=== PATIENT | male | born 1935 | race Caucasian/White ===

== ENCOUNTER 2017-07-31 14:32 | Inpatient (IN) | payer MEDICARE, OTHER ==
[~2017-07-31] VITALS: Ht 180.3 cm; Wt 89.8 kg
[2017-07-31 13:36] VITALS: BP 174/94
--- NOTE | 2017-07-31 14:40 | NUR ---
BIBRA 89 FROM [facility] [facility] C/O LOW BP 84/54 AT SCENE, OL=[id number] ON ROUTE. A/OX 4. BREATHING EVEN AND UNLABORED. NO SOB. VITAL STABLE. SAFTEY AND COMFORT MEASURES IN PLACE. AWAITING MD ORDERS.
--- NOTE | 2017-07-31 14:50 | NUR ---
REGULATORY AFFAIRS DIRECTOR AT BEDSIDE FOR BLOOD DRAW.
[2017-07-31 14:56] LABS: BASOPHILS # (AUTO) 0.2 /CMM (0.0-0.2); BASOPHILS % (AUTO) 3.5 % (0.0-2.0); EOSINOPHILS # (AUTO) 0.1 /CMM (0.0-0.7); EOSINOPHILS % (AUTO) 1.2 % (0.0-6.0); HEMATOCRIT 39 % (39-51); HEMOGLOBIN 12.7 g/dL (13.5-17.5); LYMPHOCYTES # (AUTO) 1.9 /CMM (0.8-4.8); MEAN CORPUSCULAR HEMOGLOBIN 29 PG (26.0-33.0); MEAN CORPUSCULAR HGB CONC 32 g/dl (31.0-36.0); MEAN CORPUSCULAR VOLUME 88 fL (80-96); MONOCYTES # (AUTO) 0.4 /CMM (0.1-1.30); NEUTROPHILS # (AUTO) 4.3 /CMM (1.8-8.9); NEUTROPHILS % (AUTO) 61.3 % (43.0-81.0); PLATELET COUNT (AUTO) 195 /CMM (150-450); RDW COEFFICIENT OF VARIATION 12.5 (11.5-15.0); RED BLOOD CELL COUNT(AUTO) 4.45 MIL/uL (4.5-6.0); WHITE BLOOD COUNT (AUTO) 6.9 K/uL (4.3-11.0)
[2017-07-31] MEDS ORDERED: IV NS 0.9% 500 ML BAG IV ONE (15:00)
--- NOTE | 2017-07-31 15:05 | NUR ---
PATIENT TAKEN TO CT VIA STRETCHER.
[2017-07-31 15:08] LABS: INR 0.87 (0.87-1.13)
[2017-07-31 15:10] LABS: ALANINE AMINOTRANSFERASE 23 U/L (12-78); ALBUMIN 3.7 g/dL (3.4-5.0); ALKALINE PHOSPHATASE 80 U/L (46-116); ASPARTATE AMINOTRANSFERASE 24 U/L (15-37); BILIRUBIN,DIRECT 0.1 mg/dL (0.0-0.2); BILIRUBIN,TOTAL 0.6 mg/dL (0.2-1.0); CALCIUM, SERUM 8.9 mg/dL (8.5-10.1); CARBON DIOXIDE 30 mmol/L (21-32); CHLORIDE 102 mmol/L (98-107); CREATININE 1.5 mg/dL (0.6-1.3); GLUCOSE 88 mg/dL (74-106); POTASSIUM 4.9 mmol/L (3.5-5.1); SODIUM SERUM 135 mmol/L (136-145); TOTAL PROTEIN, SERUM 7.4 g/dL (6.4-8.2); UREA NITROGEN, BLOOD 24 mg/dL (7-18)
[2017-07-31 15:12] LABS: TROPONIN I < 0.017 ng/mL (0.00-0.056)
--- NOTE | 2017-07-31 15:18 | NUR ---
PATIENT RETURNED FROM CT IN STABLE CONDITION.
[2017-07-31] MEDS ORDERED: PRAM1TAB3 PO (16:01)
[2017-07-31] MEDS ORDERED: CARB-93 PO (16:01)
[2017-07-31] MEDS ORDERED: ALPR0.5T PO (16:01)
[2017-07-31] MEDS ORDERED: ATEN50TA PO (16:01)
[2017-07-31] MEDS ORDERED: ESCI20TA PO (16:01)
--- NOTE | 2017-07-31 16:07 | NUR ---
REPORT GIVEN TO WARD CHADWICK FOR ADMISSION TO FLOOR.
[2017-07-31] MEDS ORDERED: BENAZEPRIL HCL 10 MG TABLET ONE (16:12)
--- NOTE | 2017-07-31 16:20 | NUR ---
URINE OBTAINED AND SENT TO LAB.
--- NOTE | 2017-07-31 16:21 | NUR ---
BLOOD PRESSURE INCREASED TO 167/105, INFORMED, ORDERED LOTENSIN 20MG.
[2017-07-31 16:30] VITALS: BP 171/97
[2017-07-31] MEDS ORDERED: MAG HYDROX/AL HYDROX/SIMETH 30 ML UDC PO PRN (16:30)
[2017-07-31] MEDS ORDERED: ACETAMINOPHEN 325 MG TABLET PO PRN (16:30)
[2017-07-31] MEDS ORDERED: ONDANSETRON HCL/PF 4 MG/2 ML VIAL IVP PRN (16:30)
[2017-07-31] MEDS ORDERED: ZOLPIDEM TARTRATE 5 MG TABLET PO PRN (16:30)
[2017-07-31] MEDS ORDERED: HYDROCODONE/APAP 5/325MG 1 EACH TABLET PO PRN (16:30)
[2017-07-31] MEDS ORDERED: Z GUARD REMEDY 2 OZ OINT TP PRN (16:30)
[2017-07-31] MEDS ORDERED: MAGNESIUM HYDROXIDE 30 ML UDC PO PRN (16:30)
[2017-07-31] MEDS ORDERED: BENAZEPRIL HCL 10 MG TABLET PO SCH (16:30)
--- NOTE | 2017-07-31 16:30 | NUR ---
RN FIELD CASE MANAGER OPENING RECEIVED PATIENT A/OX4 FAMILY AT BEDSIDE. PATIENT DENIES SOB, DIFFICULTY BREATHING OR PAIN AT THIS TIME. BP ELEVATED DUE TO NS BOLUS IN ER. PATIENT DENIES DIZZINESS. PATIENT TELE APPLIED. IV INTACT PATENT AND DRESSING CLEAN AND DRY. PATIENT APPEARS STABLE AT THIS TIME. MED RECON UPDATED PER FAMILY. WILL NOTIFY MD BERRY. WILL ROUND Q2H OR LESS PER NEEDS
[2017-07-31 16:32] VITALS: BP 169/94
--- NOTE | 2017-07-31 16:36 | NUR ---
PATIENT TRANSPORTED TO [facility] VIA ACLS PROTOCOL. RNWARD TO PROVIDE LUCIA.
[2017-07-31] MEDS: PRAMIPEXOLE DI-HCL 0.25 MG TABLET PO SCH (16:41)
[2017-07-31] MEDS: CARBIDOPA/LEVODOPA 25/100 MG 1 UDTAB PO SCH (16:41)
[2017-07-31] MEDS: IV NS 0.9% 1,000 ML IV PRN (16:41)
[2017-07-31] MEDS: ENOXAPARIN SODIUM 30 MG/0.3 ML DISP.SYRIN SQ SCH (16:53)
[2017-07-31] MEDS ORDERED: CHOL20004 PO (16:55)
[2017-07-31] MEDS ORDERED: MIRT30TA PO (16:55)
[2017-07-31] MEDS ORDERED: ROSU10TA PO (16:55)
--- NOTE | 2017-07-31 17:30 | NUR ---
SEALANT MIXER NOTES DR BERRY AT BEDSIDE. AWARE OF HTN AND NEW MEDS TO MED RECON
--- NOTE | 2017-07-31 18:00 | NUR ---
ROTARY DRILLER NOTES ADMISSION CHARTED AT "1800" HOWEVER COMPLETED WHEN PATIENT ADMITTED AT 1640.
--- NOTE | 2017-07-31 18:36 | NUR ---
HARDENING MACHINE OPERATOR HELPER CLOSING PATIENT STABLE. MD BERRY MESSAGED AGAIN FOR BP MANAGEMENT AND UPDATE IN MED RECON. ALL DUE MEDS GIVEN AND ALL NEEDS MET. NEEDS IN REACH. FAMILY AT SIDE. CARE ENDORSED TO RN FOR LUCIA
[2017-07-31] MEDS: ATENOLOL 50 MG TABLET PO SCH (19:00)
[2017-07-31] MEDS ORDERED: CLONIDINE HCL 0.1 MG TABLET PO PRN (19:00)
--- NOTE | 2017-07-31 19:45 | NUR ---
RN INITIAL NOTE RECEIVED PT IN NO ACUTE DISTRESS IN BED. PT IS A/O X 4 AND ABLE TO MAKE NEEDS KNOWN. PT IS ON RA AND TOLERATING WELL WITH O2 SAT @ 94%. PT IS ON TELE WITH SB IN THE 50'S ON THE MONITOR. PT IS NOT C/O ANY SOB, DIFFICULTY BREATHING OR PAIN AT THIS TIME. PT HAS LAC 18G THAT IS CLEAN DRY INTACT AND PATENT WITH NS @ 75ML/HR. BED IN LOW LOCK POSITION WITH RIALS UP X 2. CALL LIGHT WITHIN REACH AND ALL SAFETY MEASURES ENSURED AND CARRIED OUT. WILL CONTINUE TO MONITOR PT.
[2017-07-31 20:00] VITALS: BP 95/58
[2017-07-31] MEDS: MIRTAZAPINE 15 MG TABLET PO SCH (22:00)
[2017-07-31] MEDS: ALPRAZOLAM 0.5 MG TABLET PO PRN (22:45)
[2017-07-31] MEDS: ATORVASTATIN 10 MG TABLET PO SCH (22:46)
[2017-08-01] VITALS (8 sets, daily range): BP systolic 109–146; BP diastolic 56–84
--- NOTE | 2017-08-01 06:57 | NUR ---
RN CLOSING NOTE PT REMAINS IN NO ACUTE DISTRESS IN BED. PT DID NOT HAVE ANY SIGNIFICANT CHANGE IN CONDITION DURING SHIFT. ALL NEEDS MET, ALL ORDERS CARRIED OUT. WILL ENDORSE CARE TO AM RN FOR CONTINUITY OF CARE.
--- NOTE | 2017-08-01 07:23 | NUR ---
BOILER HOUSE OPERATOR OPENING RECEIVED PATIENT A/OX4. PATIENT DENIES SOB, DIFFICULTY BREATHING OR PAIN AT THIS TIME. PATIENT DENIES DIZZINESS. IV INTACT PATENT AND DRESSING CLEAN AND DRY; IVF RUNNING ORDERED. PATIENT APPEARS STABLE AT THIS TIME. WILL ROUND Q2H OR LESS PER NEEDS. BED LOWERED AND LOCKED, RAILS UPX3 FOR SAFETY AND BED ALARM ON
[2017-08-01 07:45] LABS: BASOPHILS % (AUTO) 0.2 % (0.0-2.0); EOSINOPHILS # (AUTO) 0.1 /CMM (0.0-0.7); EOSINOPHILS % (AUTO) 1.7 % (0.0-6.0); HEMATOCRIT 35 % (39-51); HEMOGLOBIN 11.7 g/dL (13.5-17.5); LYMPHOCYTES # (AUTO) 2.3 /CMM (0.8-4.8); LYMPHOCYTES % (AUTO) 28.8 % (20.0-44.0); MEAN CORPUSCULAR HEMOGLOBIN 30 PG (26.0-33.0); MEAN CORPUSCULAR HGB CONC 34 g/dl (31.0-36.0); MEAN CORPUSCULAR VOLUME 89 fL (80-96); MONOCYTES # (AUTO) 0.4 /CMM (0.1-1.30); MONOCYTES % (AUTO) 4.7 % (2.0-12.0); NEUTROPHILS # (AUTO) 5.1 /CMM (1.8-8.9); NEUTROPHILS % (AUTO) 64.6 % (43.0-81.0); PLATELET COUNT (AUTO) 153 /CMM (150-450); RDW COEFFICIENT OF VARIATION 13.2 (11.5-15.0); RED BLOOD CELL COUNT(AUTO) 3.94 MIL/uL (4.5-6.0); WHITE BLOOD COUNT (AUTO) 7.8 K/uL (4.3-11.0)
[2017-08-01 07:58] LABS: CALCIUM, SERUM 8.2 mg/dL (8.5-10.1); CARBON DIOXIDE 28 mmol/L (21-32); CHLORIDE 102 mmol/L (98-107); CREATININE 1.4 mg/dL (0.6-1.3); GLUCOSE 91 mg/dL (74-106); PHOSPHORUS 3.2 mg/dL (2.5-4.9); POTASSIUM 4.4 mmol/L (3.5-5.1); SODIUM SERUM 137 mmol/L (136-145); UREA NITROGEN, BLOOD 21 mg/dL (7-18)
[2017-08-01] MEDS: ESCITALOPRAM OXALATE (10 MG) 10 MG TABLET PO SCH (08:31)
[2017-08-01] MEDS: CHOLECALCIFEROL 1,000 UNIT TABLET (VIT D3) PO SCH (08:31)
[2017-08-01] MEDS: CARBIDOPA/LEVODOPA 25/100 MG 1 UDTAB PO SCH ×3 (08:31→17:41)
[2017-08-01] MEDS: PRAMIPEXOLE DI-HCL 0.25 MG TABLET PO SCH ×2 (08:31→17:41)
--- NOTE | 2017-08-01 08:35 | NUR ---
teletray operator notes patient bradycardic 60 holding atenolol at this time., will reevaluate
[2017-08-01] MEDS: ATENOLOL 50 MG TABLET PO SCH (09:00)
--- NOTE | 2017-08-01 12:15 | NUR ---
INSPECTOR ELECTROMECHANICAL NOTES PATIENT AWARE NEEDING ANOTHER URINE SAMPLE
--- NOTE | 2017-08-01 12:45 | NUR ---
GEOTHERMAL SHEET METAL WORKER NOTES DR MAT FLORIAN AND DR GOLDBERG AT BEDSIDE
[2017-08-01 13:34] LABS: APPEARANCE,URINE CLEAR (CLEAR); BILIRUBIN,URINE NEGATIVE (NEGATIVE); BLOOD, URINE NEGATIVE Ery/uL (NEGATIVE); COLOR,URINE YELLOW (YELLOW); KETONES,URINE NEGATIVE (NEGATIVE); LEUKOCYTE ESTERASE ,URINE NEGATIVE (NEGATIVE); NITRITE, URINE NEGATIVE (NEGATIVE); PROTEIN,URINE NEGATIVE (NEGATIVE); UGLUCOSE NEGATIVE (NEGATIVE); UROBILINOGEN,URINE 0.2 EU/dL (0.2)
[2017-08-01 13:39] LABS: TROPONIN I < 0.017 ng/mL (0.00-0.056)
[2017-08-01 13:46] LABS: IRON, SERUM 83 ug/dl (50-175); TOTAL IRON BINDING CAPACITY 262 ug/dl (250-450)
[2017-08-01 13:50] LABS: CHOLESTEROL 192 mg/dL (<200); FERRITIN 111 ng/mL (8-388); HDL CHOLESTEROL 43 mg/dL (40-60); LDL 114 mg/dL (0-99); THYROID STIMULATING HORMONE 0.688 uIU/mL (0.358-3.74); TRIGLYCERIDES 213 mg/dL (30-150)
--- NOTE | 2017-08-01 14:16 | NUR ---
DEPARTMENT CLINICIAN NOTES PATIENT STATES MUSCLE PAIN IN NECK AND SHOULDERS. OFFERED TYLENOL, ICE, HEAT, MASSAGE, PATIENT STATES NO. HE WILL HAVE COME AND GIVE MASSAGE.
[2017-08-01] MEDS: IV NS 0.9% 1,000 ML IV PRN (17:47)
--- NOTE | 2017-08-01 18:54 | NUR ---
POWER TRUCK DRIVER CLOSING PATIENT STABLE. PATIENT STATES SHOULDER PAIN HOWEVER IS NOT WANTING ANYTHING FOR PAIN. STATES HE WILL ASK FOR XANAX TONIGHT. AT BEDSIDE. MESSAGE TO SURGICAL SERVICES DIRECTOR TO FOLLOW UP ON ECHO. PATIENT TELE SINUS TANI 59. ALL DUE MEDS GIVEN AND ALL NEEDS MET. CARE ENDORSED TO RN FOR LUCIA
--- NOTE | 2017-08-01 20:00 | NUR ---
RETAIL SALES VITAMIN CONSULTANT - NOTES - RECEIVED PATIENT A/OX4. PATIENT DENIES SOB, DIFFICULTY BREATHING OR PAIN AT THIS TIME. PATIENT DENIES DIZZINESS. IV INTACT PATENT AND DRESSING CLEAN AND DRY; IVF RUNNING ORDERED. PATIENT APPEARS STABLE AT THIS TIME. WILL ROUND Q2H OR LESS PER NEEDS. BED LOWERED AND LOCKED, RAILS UPX3 FOR SAFETY AND BED ALARM ON
[2017-08-01] MEDS: ALPRAZOLAM 0.5 MG TABLET PO PRN (21:05)
[2017-08-01] MEDS: ATORVASTATIN 10 MG TABLET PO SCH (21:05)
[2017-08-01] MEDS: MIRTAZAPINE 15 MG TABLET PO SCH (21:06)
[2017-08-01] MEDS: ENOXAPARIN SODIUM 30 MG/0.3 ML DISP.SYRIN SQ SCH (21:08)
[2017-08-02] VITALS: BP 129/70
[2017-08-02 04:00] VITALS: BP 118/82
[2017-08-02] MEDS: IV NS 0.9% 1,000 ML IV PRN (04:59)
--- NOTE | 2017-08-02 07:30 | NUR ---
RESEARCH CONSULTANT OPENING RECEIVED PATIENT A/OX4. PATIENT DENIES SOB, DIFFICULTY BREATHING OR PAIN AT THIS TIME. PATIENT DENIES DIZZINESS WHILE IN BED BUT STATES WHEN HE GETS UP HE IS A LITTLE DIZZY. REMINDED PATIENT FALL PREVENTION, SLOW MOVEMENTS. IV INTACT PATENT AND DRESSING CLEAN AND DRY; IVF RUNNING ORDERED. PATIENT APPEARS STABLE AT THIS TIME. WILL ROUND Q2H OR LESS PER NEEDS. BED LOWERED AND LOCKED, RAILS UPX3 FOR SAFETY AND BED ALARM ON. TELE NSR AT THIS TIME. PER JOSEFINA DAUGHTER AROUND 8PM LAST NIGHT PATIENT SEEMED A BIT DISORIENTED MORE THAN HE USUALLY IS. WILL NOTIFY .
[2017-08-02 08:00] VITALS: BP 142/83
[2017-08-02 08:10] LABS: BASOPHILS % (AUTO) 0.3 % (0.0-2.0); EOSINOPHILS # (AUTO) 0.1 /CMM (0.0-0.7); EOSINOPHILS % (AUTO) 1.3 % (0.0-6.0); HEMATOCRIT 34 % (39-51); HEMOGLOBIN 11.6 g/dL (13.5-17.5); LYMPHOCYTES # (AUTO) 2.1 /CMM (0.8-4.8); LYMPHOCYTES % (AUTO) 28.1 % (20.0-44.0); MEAN CORPUSCULAR HEMOGLOBIN 30 PG (26.0-33.0); MEAN CORPUSCULAR HGB CONC 34 g/dl (31.0-36.0); MEAN CORPUSCULAR VOLUME 89 fL (80-96); MONOCYTES # (AUTO) 0.4 /CMM (0.1-1.30); MONOCYTES % (AUTO) 5.2 % (2.0-12.0); NEUTROPHILS % (AUTO) 65.1 % (43.0-81.0); PLATELET COUNT (AUTO) 144 /CMM (150-450); RDW COEFFICIENT OF VARIATION 12.9 (11.5-15.0); RED BLOOD CELL COUNT(AUTO) 3.85 MIL/uL (4.5-6.0); WHITE BLOOD COUNT (AUTO) 7.6 K/uL (4.3-11.0)
[2017-08-02 08:20] LABS: CALCIUM, SERUM 8.1 mg/dL (8.5-10.1); CARBON DIOXIDE 26 mmol/L (21-32); CHLORIDE 103 mmol/L (98-107); CREATININE 1.3 mg/dL (0.6-1.3); GLUCOSE 94 mg/dL (74-106); POTASSIUM 4.6 mmol/L (3.5-5.1); SODIUM SERUM 136 mmol/L (136-145); UREA NITROGEN, BLOOD 20 mg/dL (7-18)
[2017-08-02] MEDS: CARBIDOPA/LEVODOPA 25/100 MG 1 UDTAB PO SCH ×3 (08:30→16:01)
[2017-08-02] MEDS: ESCITALOPRAM OXALATE (10 MG) 10 MG TABLET PO SCH (08:30)
[2017-08-02] MEDS: PRAMIPEXOLE DI-HCL 0.25 MG TABLET PO SCH ×2 (08:30→16:01)
[2017-08-02] MEDS: CHOLECALCIFEROL 1,000 UNIT TABLET (VIT D3) PO SCH (08:30)
[2017-08-02] MEDS ORDERED: IV NS 0.9% 1,000 ML IV PRN (08:51)
--- NOTE | 2017-08-02 09:50 | NUR ---
MANUFACTURING WEAVER NOTES HURRICANE TRACKER YANICK AT BEDSIDE
--- NOTE | 2017-08-02 10:30 | NUR ---
telesales agent notes dr lynn jameson at bedside. updated on patient condition and family concern that patient is more forgetful at this time
[2017-08-02 12:00] VITALS: BP 134/75
--- NOTE | 2017-08-02 16:30 | NUR ---
SUPERVISING EDITOR TRAILERSTATION SUPERINTENDENT PATIENT AND EDUCATED AND ON DC PAPERWORK AND STATED UNDERSTANDING. ALL DUE MEDS GIVEN AND ALL NEEDS MET. PATIENT REQUESTED TO SIGN DC PAPERWORK HIS HAND IS NOT STEADY. IV REMOVED PRESSURE AND DRESSING APPLIED NO BLEEDING NOTED. ALL BELONGINGS ACCOUNTED FOR AND SIGNED. PATIENT ASSISTED TO WHEELCHAIR AND TO PRIVATE CAR WITH RASHID JUNE AND LEFT IN STABLE CONDITION.
== END 2017-08-02 16:28 | disposition home or self-care (01) | DRG 683 ==
LOC: ER 14:36 → TELE1 15:52
PROVIDERS: ADMIT Internal Medicine; ATTEND Internal Medicine
DX: N17.0 Acute kidney failure with tubular necrosis (principal); E87.1 Hypo-osmolality and hyponatremia; G91.2 (Idiopathic) normal pressure hydrocephalus; G20 Parkinson's disease; I95.1 Orthostatic hypotension; W19.XXXA Unspecified fall, initial encounter; D63.8 Anemia in other chronic diseases classified elsewhere; E86.0 Dehydration; E86.1 Hypovolemia; E78.5 Hyperlipidemia, unspecified; F02.80 Dementia in other diseases classified elsewhere, unspecified severity, without behavioral disturbance, psychotic disturbance, mood disturbance, and anxiety; F32.9 Major depressive disorder, single episode, unspecified; F41.9 Anxiety disorder, unspecified; N18.9 Chronic kidney disease, unspecified; I12.9 Hypertensive chronic kidney disease with stage 1 through stage 4 chronic kidney disease, or unspecified chronic kidney disease; Y93.9 Activity, unspecified; Y92.009 Unspecified place in unspecified non-institutional (private) residence as the place of occurrence of the external cause
CPT/HCPCS: 36415; 70450-TC; 71010-TC; 80048-TC; 80061-TC; 80076-TC; 81000-TC; 82306; 82728-TC; 83540-TC; 83605-TC; 83735-TC; 84100-TC; 84439-TC; 84443-TC; 84484-TC; 85025-TC; 85730-TC; 87040-TC; 87081-TC; 87086-TC; 93307-TC; 93880-TC; J1650; J7030; J7040

== ENCOUNTER 2021-03-27 13:41 | Inpatient (IN) | payer MEDICARE, OTHER ==
[~2021-03-27] VITALS: Ht 180.3 cm; Wt 85.5 kg
[~2021-03-27 13:41] MED LIST: ALPR0.5T PO; CARB-93 PO; CHOL20004 PO; ESCI20TA PO; MIRT-119 PO; PRAM1TAB3 PO; ROSU10TA2 PO
--- NOTE | 2021-03-27 13:51 | NUR ---
BIBRA 41 FROM HOME C/O FAILURE TO THRIVE "HE IS NOT EATING & NOT SLEEPING". PT AAOX2, RR EVEN & UNLABORED. DENIES CP, SOB, DIZZINESS, N/V AT THIS TIME. AWAITING EVAL BY TAYO. PLACED ON COAL CAGER, SR. WILL CONT TO MONITOR.
[2021-03-27] MEDS ORDERED: SAFI100T PO (13:54)
[2021-03-27] MEDS ORDERED: CARB1TAB24 PO (13:54)
[2021-03-27] MEDS ORDERED: AMAN100C16 PO (13:54)
[2021-03-27] MEDS ORDERED: ATEN50TA PO (13:54)
--- NOTE | 2021-03-27 14:00 | NUR ---
DR. WARD AT BS FOR EVAL.
[2021-03-27 14:35] LABS: BASOPHILS # (AUTO) 0.1 K/uL (0.0-0.2); BASOPHILS % (AUTO) 1.2 % (0.0-2.0); EOSINOPHILS % (AUTO) 0.3 % (0.0-6.0); HEMATOCRIT 35 % (39-51); HEMOGLOBIN 11.3 g/dL (13.5-17.5); LYMPHOCYTES # (AUTO) 1.7 K/uL (0.8-4.8); LYMPHOCYTES % (AUTO) 25.3 % (20.0-44.0); MEAN CORPUSCULAR HGB CONC 33 g/dl (31.0-36.0); MEAN CORPUSCULAR VOLUME 91 fL (80-96); MONOCYTES # (AUTO) 0.4 K/uL (0.1-1.30); MONOCYTES % (AUTO) 5.5 % (2.0-12.0); NEUTROPHILS # (AUTO) 4.5 K/uL (1.8-8.9); NEUTROPHILS % (AUTO) 67.7 % (43.0-81.0); PLATELET COUNT (AUTO) 158 K/uL (150-450); RED BLOOD CELL COUNT(AUTO) 3.81 MIL/uL (4.5-6.0); WHITE BLOOD COUNT (AUTO) 6.6 K/uL (4.3-11.0)
[2021-03-27 14:45] LABS: CALCIUM, SERUM 8.8 mg/dL (8.5-10.1); CARBON DIOXIDE 22 mmol/L (21-32); CHLORIDE 104 mmol/L (98-107); CREATININE 1.6 mg/dL (0.6-1.3); GLUCOSE 98 mg/dL (74-106); SODIUM SERUM 138 mmol/L (136-145); UREA NITROGEN, BLOOD 30 mg/dL (7-18)
[2021-03-27 14:58] LABS: ALANINE AMINOTRANSFERASE 10 U/L (12-78); ALBUMIN 3.4 g/dL (3.4-5.0); ALKALINE PHOSPHATASE 64 U/L (46-116); ASPARTATE AMINOTRANSFERASE 11 U/L (15-37); BILIRUBIN,DIRECT 0.2 mg/dL (0.0-0.2); LIPASE 93 U/L (73-393); TOTAL PROTEIN, SERUM 6.8 g/dL (6.4-8.2)
[2021-03-27] MEDS ORDERED: IV NS 0.9% 1,000 ML BAG IV ONE (15:00)
[2021-03-27 16:52] LABS: BILIRUBIN,URINE Negative (NEGATIVE); COLOR,URINE YELLOW (YELLOW); LEUKOCYTE ESTERASE ,URINE Negative (NEGATIVE); NITRITE, URINE Negative (NEGATIVE); PH,URINE 5.5 (5.0-8.0); PROTEIN,URINE Negative (NEGATIVE); UGLUCOSE Negative (NEGATIVE); UROBILINOGEN,URINE 0.2 EU/dL (0.2)
--- NOTE | 2021-03-27 17:24 | NUR ---
PT SITTING UP. AAOX3, VSS. RR EVEN & UNLABORED. DENIES CP, SOB, DIZZINESS, N/V AT THIS TIME. DAUGHTER STS THAT PT IS MORE ALERT NOW. ON TELE, SR. WILL CONT TO MONITOR.
[2021-03-27] MEDS ORDERED: MAGNESIUM HYDROXIDE 30 ML UDC PO PRN (17:30)
[2021-03-27] MEDS ORDERED: Z GUARD REMEDY 2 OZ OINT TP PRN (17:30)
[2021-03-27] MEDS ORDERED: HYDROCODONE/APAP 5/325MG TABLET PO PRN (17:30)
[2021-03-27] MEDS ORDERED: MAG HYDROX/AL HYDROX/SIMETH 30 ML UDC PO PRN (17:30)
[2021-03-27] MEDS ORDERED: ONDANSETRON HCL/PF 4 MG/2 ML VIAL IVP PRN (17:30)
--- NOTE | 2021-03-27 17:57 | NUR ---
[facility] 325-1
--- NOTE | 2021-03-27 18:40 | NUR ---
REPORT GIVEN TO FARRUKH WILLAMS FOR LUCIA.
[2021-03-27 18:53] VITALS: BP 144/73
--- NOTE | 2021-03-27 19:00 | NUR ---
MS HISTORY CARD CLERK NOTE PATIENT ARRIVED TO FLOOR WITH DAUGHTER JOSEFINA AT BEDSIDE, PT ALERT/ORIENTED X 3, PRIMARY LANGUAGE MALAGASY BUT KNOWS SOME SENEGALESE, NO COMPLAINT OF PAIN OR DIZZINESS AT THIS TIME. PATIENT STABLE ON ROOM AIR, NO S/S OF DISTRESS OR SOB NOTED, BREATHING EVEN AND UNLABORED. ORIENTED PATIENT TO ROOM AND HOW TO USE CALL LIGHT. PATIENT BELONGINGS DOCUMENTED AND ACCOUNTED FOR. SAFETY MEASURES IN PLACE, CALL LIGHT AND TABLE WITHIN REACH, BED ALARM ON, BED LOCKED IN LOWEST POSITION, SIDE RAILS UP X 3. WILL CONTINUE TO MONITOR
--- NOTE | 2021-03-27 19:45 | NUR ---
MS FARRUKH NOTES PATIENT'S DAUGHTER BROUGHT XADAGO HOME MEDICATION, WILL TAKE TO PHARMACY IN AM. DAUGHTER ALSO BROUGHT PT'S WALKER FROM HOME AND MORE CLOTHES, ADDED TO BELONGINGS LIST. PER DAUGHTER, PT TAKES SINEMET 25/100 MG AT HOME AT 7 AM, 11 AM, 3 PM AND 7 PM. DAUGHTER REQUESTED THAT DOSAGE TIMES BE ADJUSTED TO MATCH THE TIMES HE TAKES AT HOME Addendum: 03/28/21 at 0700 by MACIEL CASTRO RN PER DAUGHTER, PT TAKES 2 TABLETS OF SINEMET 25/100 MG AT HOME AT 7 AM, 11 AM, 3 PM AND 7 PM.
[2021-03-27] MEDS: IV NS 0.9% 1,000 ML IV PRN (20:26)
[2021-03-27] MEDS: ALPRAZOLAM 0.5 MG TABLET PO PRN (20:52)
[2021-03-27] MEDS ORDERED: CARBIDOPA/LEVODOPA 25/250 MG 1 UDTAB PO SCH (21:00)
--- NOTE | 2021-03-28 02:30 | NUR ---
MS RN NOTE CALLED PHARMACY TO ADJUST DOSE SCHEDULE FOR SINEMET TO MATCH THE TIMES PATIENT TAKES IT AT HOME (7 AM, 11 AM, 3 PM AND 7 PM) PER DAUGHTER REQUEST
[2021-03-28 05:40] VITALS: BP_SYST 149; BP_SYST 159; BP_SYST 169; BP_DIAS 91; BP_DIAS 92; BP_DIAS 98
[2021-03-28 06:59] LABS: BASOPHILS % (AUTO) 0.3 % (0.0-2.0); EOSINOPHILS % (AUTO) 0.8 % (0.0-6.0); HEMATOCRIT 32 % (39-51); HEMOGLOBIN 10.5 g/dL (13.5-17.5); LYMPHOCYTES # (AUTO) 2.3 K/uL (0.8-4.8); LYMPHOCYTES % (AUTO) 29.7 % (20.0-44.0); MEAN CORPUSCULAR HGB CONC 33 g/dl (31.0-36.0); MEAN CORPUSCULAR VOLUME 91 fL (80-96); MONOCYTES # (AUTO) 0.5 K/uL (0.1-1.30); NEUTROPHILS # (AUTO) 4.8 K/uL (1.8-8.9); NEUTROPHILS % (AUTO) 63.2 % (43.0-81.0); PLATELET COUNT (AUTO) 150 K/uL (150-450); RED BLOOD CELL COUNT(AUTO) 3.48 MIL/uL (4.5-6.0); WHITE BLOOD COUNT (AUTO) 7.6 K/uL (4.3-11.0)
--- NOTE | 2021-03-28 07:00 | NUR ---
MS RN CLOSING NOTES PATIENT RESTING IN BED, STABLE ON ROOM AIR, NO S/S OF DISTRESS OR SOB NOTED, BREATHING EVEN AND UNLABORED. LEFT HAND #22G RUNNING NS @ 75ML/HR. PATIENT REFUSING DVT PUMPS BECAUSE THEY DIDN'T LET HIM SLEEP. NO COMPLAINTS OF PAIN AT THIS TIME. MEDICATIONS GIVEN ORDERED. PT NEEDS MET THROUGHOUT SHIFT. SAFETY MEASURES IN PLACE, CALL LIGHT WITHIN REACH, BED IN LOWEST POSITION, SIDE RAILS UP X 3, BED ALARM ON. WILL ENDORSE TO DAY SHIFT NURSE FOR CONTINUITY OF CARE
[2021-03-28] MEDS: CARBIDOPA/LEVODOPA 25/250 MG 1 UDTAB PO SCH ×3 (07:01→14:58)
[2021-03-28 07:42] LABS: THYROID STIMULATING HORMONE 2.169 uIU/mL (0.358-3.74)
[2021-03-28 07:45] LABS: CALCIUM, SERUM 7.8 mg/dL (8.5-10.1); CREATININE 1.2 mg/dL (0.6-1.3); MAGNESIUM 1.6 mg/dL (1.8-2.4)
[2021-03-28 08:00] VITALS: BP 149/78
[2021-03-28] MEDS ORDERED: Magnesium 1GM/D5W 100ML PREMIX PIGGYBACK IV ONE (08:30)
[2021-03-28] MEDS ORDERED: ESCITALOPRAM OXALATE (10 MG) 10 MG TABLET PO SCH (09:00)
[2021-03-28] MEDS: [UNRECOGNIZED DRUG - OTHER] PO SCH (09:42)
[2021-03-28] MEDS: CHOLECALCIFEROL 1,000 UNIT TABLET (VIT D3) PO SCH (09:43)
[2021-03-28] MEDS: PANTOPRAZOLE 40 MG TABLET.DR PO SCH (09:43)
[2021-03-28] MEDS: ENOXAPARIN SODIUM 40 MG/0.4 ML DISP.SYRIN SQ SCH (09:58)
[2021-03-28 10:19] LABS: IRON, SERUM 56 ug/dl (50-175); TOTAL IRON BINDING CAPACITY 203 ug/dl (250-450)
[2021-03-28 10:31] LABS: FERRITIN 253 ng/mL (8-388)
[2021-03-28] MEDS: ALPRAZOLAM 0.5 MG TABLET PO PRN (11:03)
[2021-03-28] MEDS ORDERED: ALPRAZOLAM 0.5 MG TABLET PO SCH (12:00)
[2021-03-28] MEDS: ACETAMINOPHEN 325 MG TABLET PO PRN ×2 (12:21→19:18)
[2021-03-28] MEDS ORDERED: CARBIDOPA/LEVODOPA 25/100 MG 1 UDTAB PO SCH ×2 (13:00→19:00)
[2021-03-28 16:00] VITALS: BP 135/76
--- NOTE | 2021-03-28 19:47 | NUR ---
MS RN CLOSING NOTES PATIENT RESTING IN BED WITH DAUGHTER AT BEDSIDE, STABLE ON ROOM AIR, NO S/S OF DISTRESS OR SOB NOTED, BREATHING EVEN AND UNLABORED. LEFT HAND #22G RUNNING NS @ 75ML/HR. PATIENT REPORTING PAIN AND REQUESTED TYLENOL, MEDICATION GIVEN ORDERED. SAFETY MEASURES IN PLACE, CALL LIGHT WITHIN REACH, BED IN LOWEST POSITION, SIDE RAILS UP X 3, BED ALARM ON. WILL CONTINUE TO MONITOR THROUGHOUT SHIFT Addendum: 03/28/21 at 1949 by MACIEL CASTRO RN MS RN OPENING NOTES
[2021-03-28 20:00] VITALS: BP 147/78
[2021-03-28] MEDS: ALPRAZOLAM 0.5 MG TABLET PO SCH (20:38)
[2021-03-29] MEDS: ACETAMINOPHEN 325 MG TABLET PO PRN (05:13)
[2021-03-29 06:02] LABS: BASOPHILS % (AUTO) 0.5 % (0.0-2.0); HEMATOCRIT 33 % (39-51); MEAN CORPUSCULAR HGB CONC 33 g/dl (31.0-36.0); MEAN CORPUSCULAR VOLUME 92 fL (80-96); MONOCYTES # (AUTO) 0.4 K/uL (0.1-1.30); MONOCYTES % (AUTO) 5.9 % (2.0-12.0); NEUTROPHILS # (AUTO) 4.3 K/uL (1.8-8.9); NEUTROPHILS % (AUTO) 63.6 % (43.0-81.0); PLATELET COUNT (AUTO) 152 K/uL (150-450); WHITE BLOOD COUNT (AUTO) 6.7 K/uL (4.3-11.0)
[2021-03-29] MEDS: IV NS 0.9% 1,000 ML IV PRN (06:03)
[2021-03-29] MEDS ORDERED: CARBIDOPA/LEVODOPA 25/100 MG 1 UDTAB PO SCH ×3 (07:00→15:00)
[2021-03-29 07:15] LABS: CALCIUM, SERUM 8.1 mg/dL (8.5-10.1); CREATININE 1.3 mg/dL (0.6-1.3); POTASSIUM 3.9 mmol/L (3.5-5.1)
--- NOTE | 2021-03-29 07:25 | NUR ---
MS RN CLOSING NOTES PATIENT RESTING IN BED, STABLE ON ROOM AIR, NO S/S OF DISTRESS OR SOB NOTED, BREATHING EVEN AND UNLABORED. LEFT HAND #22G RUNNING NS @ 75ML/HR. NO COMPLAINTS OF PAIN AT THIS TIME. MEDICATIONS GIVEN ORDERED. PT NEEDS MET THROUGHOUT SHIFT. SAFETY MEASURES IN PLACE, CALL LIGHT WITHIN REACH, BED IN LOWEST POSITION, SIDE RAILS UP X 3, BED ALARM ON. WILL ENDORSE TO DAY SHIFT NURSE FOR CONTINUITY OF CARE
[2021-03-29 08:00] VITALS: BP 173/91
[2021-03-29] MEDS ORDERED: ESCITALOPRAM OXALATE (10 MG) 10 MG TABLET PO SCH (09:00)
[2021-03-29] MEDS: [UNRECOGNIZED DRUG - OTHER] PO SCH (09:04)
[2021-03-29] MEDS: ALPRAZOLAM 0.5 MG TABLET PO SCH (09:04)
[2021-03-29] MEDS: CHOLECALCIFEROL 1,000 UNIT TABLET (VIT D3) PO SCH (09:04)
[2021-03-29] MEDS: PANTOPRAZOLE 40 MG TABLET.DR PO SCH (09:04)
[2021-03-29] MEDS: ENOXAPARIN SODIUM 40 MG/0.4 ML DISP.SYRIN SQ SCH (09:05)
[2021-03-29] MEDS: ENSURE ENLIVE 237 ML LIQUID (VANILLA) PO SCH ×3 (09:05→13:20)
[2021-03-29 16:00] VITALS: BP_SYST 140; BP_SYST 143; BP_DIAS 74; BP_DIAS 76
== END 2021-03-29 17:13 | disposition home or self-care (01) | DRG 56 ==
LOC: ER 13:49 → MED 18:01
PROVIDERS: ADMIT Nurse Practitioner Acute Care; ATTEND Nurse Practitioner Acute Care
DX: G91.2 (Idiopathic) normal pressure hydrocephalus (principal); N17.0 Acute kidney failure with tubular necrosis; J98.11 Atelectasis; R62.7 Adult failure to thrive; F02.80 Dementia in other diseases classified elsewhere, unspecified severity, without behavioral disturbance, psychotic disturbance, mood disturbance, and anxiety; G20 Parkinson's disease; D63.8 Anemia in other chronic diseases classified elsewhere; F32.9 Major depressive disorder, single episode, unspecified; F41.9 Anxiety disorder, unspecified; Z20.822 Contact with and (suspected) exposure to COVID-19; Z79.899 Other long term (current) drug therapy; E78.5 Hyperlipidemia, unspecified; G93.89 Other specified disorders of brain; E83.42 Hypomagnesemia; N13.9 Obstructive and reflux uropathy, unspecified; F39 Unspecified mood [affective] disorder
CPT/HCPCS: 36415; 70450-TC; 71045-TC; 80048-TC; 80061-TC; 80076-TC; 82728-TC; 83540-TC; 83690-TC; 83735-TC; 83880; 84100-TC; 84443-TC; 84484-TC; 85025-TC; 85730-TC; 87081-TC; 87086-TC; 93307-TC; 97116-TC; 97530-TC; C9803; G0378; J1650; J3475; J7030

== ENCOUNTER 2021-05-12 18:35 | Inpatient (IN) | payer MEDICARE, OTHER ==
[~2021-05-12] VITALS: Ht 175.3 cm; Wt 82.6 kg
[~2021-05-12 18:35] MED LIST changes: -CARB-93 PO; +CARB1TAB24 PO; -MIRT-119 PO; -PRAM1TAB3 PO; -ROSU10TA2 PO; +SAFI100T PO
--- NOTE | 2021-05-12 18:43 | NUR ---
TO ER BED 4, BIB RA C/O WITNESSED BY GLF, ABRASION ON BACK OF HEAD, CONFUSED, AWAITING MD MCCORMACK
--- NOTE | 2021-05-12 18:55 | NUR ---
TAKEN TO CT
--- NOTE | 2021-05-12 19:07 | NUR ---
REPORT GIVEN TO JOLEEN RN FOR LUCIA
--- NOTE | 2021-05-12 19:30 | NUR ---
RECIEVED REPORT FROM FARRUKH MORALES.
--- NOTE | 2021-05-12 21:00 | NUR ---
RUBBER STAMP MAKER @ BEDSIDE.
[2021-05-12 21:06] LABS: BASOPHILS # (AUTO) 0.1 K/uL (0.0-0.2); BASOPHILS % (AUTO) 0.7 % (0.0-2.0); EOSINOPHILS % (AUTO) 0.1 % (0.0-6.0); HEMATOCRIT 34 % (39-51); HEMOGLOBIN 11.3 g/dL (13.5-17.5); LYMPHOCYTES # (AUTO) 1.6 K/uL (0.8-4.8); LYMPHOCYTES % (AUTO) 16.9 % (20.0-44.0); MEAN CORPUSCULAR HGB CONC 33 g/dl (31.0-36.0); MEAN CORPUSCULAR VOLUME 93 fL (80-96); MONOCYTES # (AUTO) 0.5 K/uL (0.1-1.30); MONOCYTES % (AUTO) 5.2 % (2.0-12.0); NEUTROPHILS # (AUTO) 7.4 K/uL (1.8-8.9); NEUTROPHILS % (AUTO) 77.1 % (43.0-81.0); PLATELET COUNT (AUTO) 190 K/uL (150-450); RED BLOOD CELL COUNT(AUTO) 3.66 MIL/uL (4.5-6.0); WHITE BLOOD COUNT (AUTO) 9.6 K/uL (4.3-11.0)
--- NOTE | 2021-05-12 21:28 | NUR ---
DR. MCBRIDE PAGED PER ER ORDER.
--- NOTE | 2021-05-12 22:05 | NUR ---
TELE 324-3
[2021-05-12 22:10] LABS: ALANINE AMINOTRANSFERASE 10 U/L (12-78); ALBUMIN 3.7 g/dL (3.4-5.0); ALKALINE PHOSPHATASE 110 U/L (46-116); ASPARTATE AMINOTRANSFERASE 16 U/L (15-37); BILIRUBIN,DIRECT 0.2 mg/dL (0.0-0.2); CALCIUM, SERUM 8.9 mg/dL (8.5-10.1); CARBON DIOXIDE 25 mmol/L (21-32); CHLORIDE 102 mmol/L (98-107); CREATININE 1.6 mg/dL (0.6-1.3); GLUCOSE 99 mg/dL (74-106); POTASSIUM 4.7 mmol/L (3.5-5.1); SODIUM SERUM 137 mmol/L (136-145); TOTAL PROTEIN, SERUM 7.4 g/dL (6.4-8.2); UREA NITROGEN, BLOOD 28 mg/dL (7-18)
--- NOTE | 2021-05-12 22:14 | NUR ---
REPORT GIVEN TO FARRUKH PARKER
--- NOTE | 2021-05-12 22:54 | NUR ---
PT TRANSFERRED PER ACLS TO 324-1
[2021-05-12] MEDS ORDERED: ACETAMINOPHEN 325 MG TABLET PO PRN (23:00)
[2021-05-12] MEDS ORDERED: ZOLPIDEM TARTRATE 5 MG TABLET PO PRN (23:00)
[2021-05-12] MEDS ORDERED: MAG HYDROX/AL HYDROX/SIMETH 30 ML UDC PO PRN (23:00)
[2021-05-12] MEDS ORDERED: ONDANSETRON HCL/PF 4 MG/2 ML VIAL IVP PRN (23:00)
[2021-05-12] MEDS ORDERED: IV NS 0.9% 1,000 ML IV ONE (23:00)
[2021-05-12] MEDS ORDERED: Z GUARD REMEDY 2 OZ OINT TP PRN (23:00)
[2021-05-12] MEDS ORDERED: MAGNESIUM HYDROXIDE 30 ML UDC PO PRN (23:00)
--- NOTE | 2021-05-12 23:00 | NUR ---
RN ADMITTING NOTE PATIENT ADMITTED TO MED SURG FLOOR 324-1. PATIENT IS TOLERATING ROOM AIR AT THIS TIME, A/O X 1, CONFUSED. PER DAUGHTER, PATIENT SPEAKS ETHIOPIAN AND ABLE TO UNDERSTAND BASIC ETHIOPIAN. PATIENT HAS MINIMAL RESPONSE WHEN BEING SPOKEN WITH. 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 PATIENT HAS A LEFT AC 18 G PATENT AND INTACT. HE IS INCONTINENT. PER DAUGHTER, PATIENT HAS MULTIPLE HX OF FALLS. PATIENT HAS AN ABRASION ON THE BACK OF HEAD, NO BLEEDING OBSERVED. OTHER SKIN ISSUES DOCUMENTED. ORIENTED PATIENT TO RN, POULTRY BREEDER, AND ROOM. SAFETY MEASURES IN PLACE; BED LOCKED AND IN LOWEST POSITION, CALL LIGHT WITHIN REACH, SIDE RAILS UP, BED ALARM ON. WILL MONITOR PATIENT CLOSELY.
[2021-05-13 01:42] VITALS: BP 133/66
[2021-05-13 04:00] VITALS: BP 135/73
[2021-05-13 06:33] LABS: BASOPHILS # (AUTO) 0.1 K/uL (0.0-0.2); BASOPHILS % (AUTO) 0.8 % (0.0-2.0); EOSINOPHILS % (AUTO) 0.1 % (0.0-6.0); HEMATOCRIT 34 % (39-51); HEMOGLOBIN 11.3 g/dL (13.5-17.5); LYMPHOCYTES # (AUTO) 1.7 K/uL (0.8-4.8); LYMPHOCYTES % (AUTO) 15.6 % (20.0-44.0); MEAN CORPUSCULAR HGB CONC 34 g/dl (31.0-36.0); MEAN CORPUSCULAR VOLUME 92 fL (80-96); MONOCYTES # (AUTO) 0.6 K/uL (0.1-1.30); MONOCYTES % (AUTO) 5.2 % (2.0-12.0); NEUTROPHILS # (AUTO) 8.7 K/uL (1.8-8.9); NEUTROPHILS % (AUTO) 78.3 % (43.0-81.0); PLATELET COUNT (AUTO) 188 K/uL (150-450); RED BLOOD CELL COUNT(AUTO) 3.65 MIL/uL (4.5-6.0); WHITE BLOOD COUNT (AUTO) 11.1 K/uL (4.3-11.0)
[2021-05-13 06:49] LABS: CALCIUM, SERUM 8.6 mg/dL (8.5-10.1); CARBON DIOXIDE 25 mmol/L (21-32); CHLORIDE 102 mmol/L (98-107); CREATININE 1.4 mg/dL (0.6-1.3); GLUCOSE 110 mg/dL (74-106); MAGNESIUM 2.2 mg/dL (1.8-2.4); PHOSPHORUS 3.1 mg/dL (2.5-4.9); POTASSIUM 4.6 mmol/L (3.5-5.1); SODIUM SERUM 135 mmol/L (136-145); UREA NITROGEN, BLOOD 25 mg/dL (7-18)
[2021-05-13 07:07] LABS: CHOLESTEROL 170 mg/dL (<200); HDL CHOLESTEROL 40 mg/dL (40-60); LDL 102 mg/dL (0-99); TRIGLYCERIDES 155 mg/dL (30-150)
--- NOTE | 2021-05-13 07:25 | NUR ---
RN CLOSING NOTE PATIENT IN BED EYS CLOSED. PATIENT CONTINUES TO BE CONFUSED. PULLED OUT IV ACCESS 0630. MULTIPLE ATTEMPTS, NOT SUCCESSFUL. BREATHING EVEN AND UNLABORED. SAFETY MEASURES MAINTAINED. ENDORSED TO DAY SHIFT NURSE FOR LUCIA.
--- NOTE | 2021-05-13 07:39 | NUR ---
MS RN OPENING NOTES RECEIVED PT IN BED, RESTING WITH EYES CLOSED, AWAKENS TO VERBAL STIMULI. BREATHING IS EVEN AND UNLABORED. NO S/SX OF RESPIRATORY DISTRESS. PT IS ON ROOM AIR AND TOLERATING WELL. SAFETY MEASURES IN PLACE: BED IN LOWEST, LOCKED POSITION, BRAKES ON, SIDERAILS UP x2. WILL CONTINUE TO MONITOR.
[2021-05-13 08:00] VITALS: BP 153/79
[2021-05-13] MEDS: ESCITALOPRAM OXALATE (10 MG) 10 MG TABLET PO SCH (08:04)
[2021-05-13] MEDS: CHOLECALCIFEROL 1,000 UNIT TABLET (VIT D3) PO SCH (08:04)
[2021-05-13] MEDS: CARBIDOPA/LEVODOPA 25/250 MG 1 UDTAB PO SCH ×3 (08:04→17:00)
--- NOTE | 2021-05-13 11:20 | NUR ---
RN NOTES SPOKE W/ DTR JOSEFINA ([phone]) AND UPDATED W/ PATIENT'S PROGRESS/CONDITION; PER JOSEFINA, SHE'S IN THE PARKING LOT RIGHT NOW JUST WAITING TO VISIT.
[2021-05-13] MEDS: ALPRAZOLAM 0.5 MG TABLET PO PRN ×2 (14:46→20:46)
[2021-05-13] MEDS ORDERED: SAFINAMIDE MESYLATE PO SCH (18:00)
[2021-05-13] MEDS: IV D5 LR 1,000 ML IV PRN (18:07)
[2021-05-13] MEDS: CARBIDOPA/LEVODOPA 25/100 MG 1 UDTAB PO SCH ×2 (18:28→19:41)
--- NOTE | 2021-05-13 18:47 | NUR ---
MS RN OPENING NOTES PT IN BED, RESTING WITH EYES OPEN. BREATHING IS EVEN AND UNLABORED. NO S/SX OF RESPIRATORY DISTRESS. PT IS ON ROOM AIR AND TOLERATING WELL. NO SOB NOTED. ALL NEEDS MET. PT KEPT CLEAN AND DRY. SAFETY MEASURES IN PLACE: BED IN LOWEST, LOCKED POSITION, BRAKES ON, SIDERAILS UP x2. WILL ENDORSE TO ONCOMING SHIFT.
--- NOTE | 2021-05-13 19:30 | NUR ---
RN NOTE RECEIVED PATIENT IN BED. A/OX2, CONFUSED, PATIENT IS CANADIAN SPEAKING. ABLE TO MAKE BASIC NEEDS KNOWN. TOLERATING ROOM AIR. RESPIRATIONS ARE EVEN AN DUNLABORED. NO S/S SOB NOTED. NO C/O PAIN AT THIS TIME. IN NO APPARENT DISTRESS. IV ACCESS IN LAC#20 RUNNING D5LR@100ML/HE. BED IS LOW AND LOCKED, HOB ELEVATED IN SEMI FOWLERS, SIDE RIAL SUP X3, STEWART LIGHT WITHIN REACH. DAUGHTER AT BEDSIDE. WILL CONTINUE TO MONITOR THROUGHOUT SHIFT.
[2021-05-13 20:00] VITALS: BP 124/76
[2021-05-13 20:17] VITALS: BP 90/55
[2021-05-13 20:54] VITALS: BP 124/76
[2021-05-14 04:00] VITALS: BP 105/61
[2021-05-14] MEDS: IV D5 LR 1,000 ML IV PRN (04:17)
[2021-05-14] MEDS: CARBIDOPA/LEVODOPA 25/100 MG 1 UDTAB PO SCH ×3 (06:15→15:10)
--- NOTE | 2021-05-14 06:56 | NUR ---
RN NOTE PATIENT IN BED. A/OX2, NOW ON 2L/MIN VIA NASAL CANNULA. 0400 VITALS SHOW PATIENT O2 SAT 905 ON ROOM AIR. NO C/O PAIN . NO DISTRESS. LAC#20 RUNNING D5LR@100ML/HR. BED REMAINS LOW AND LOCKED, HOB ELEVATED IN SEMI FOWLERS, SIDE RIAL SUP X3, STEWART LIGHT WITHIN REACH. WILL ENDORSE TO ONCOMING SHIFT.
[2021-05-14 06:59] LABS: ALANINE AMINOTRANSFERASE 10 U/L (12-78); ALBUMIN 2.9 g/dL (3.4-5.0); ALKALINE PHOSPHATASE 93 U/L (46-116); ASPARTATE AMINOTRANSFERASE 17 U/L (15-37); BILIRUBIN,TOTAL 1.1 mg/dL (0.2-1.0); CALCIUM, SERUM 8.3 mg/dL (8.5-10.1); CARBON DIOXIDE 23 mmol/L (21-32); CHLORIDE 105 mmol/L (98-107); CREATINE KINASE, TOTAL 130 U/L (39-308); CREATININE 1.4 mg/dL (0.6-1.3); GLUCOSE 125 mg/dL (74-106); MAGNESIUM 2.2 mg/dL (1.8-2.4); PHOSPHORUS 3.6 mg/dL (2.5-4.9); POTASSIUM 4.4 mmol/L (3.5-5.1); SODIUM SERUM 136 mmol/L (136-145); TOTAL PROTEIN, SERUM 6.3 g/dL (6.4-8.2); UREA NITROGEN, BLOOD 23 mg/dL (7-18)
--- NOTE | 2021-05-14 07:40 | NUR ---
MS RN OPENING NOTES RECEIVED PT IN BED, RESTING WITH EYES CLOSED, AWAKENS TO VERBAL STIMULI. BREATHING IS EVEN AND UNLABORED. NO S/SX OF RESPIRATORY DISTRESS. PT IS ON NASAL CANNULA @ 2L/MIN AND TOLERATING WELL. NO SOB NOTED. IV ACCESS IN LAC #20 RUNNING D5 WITH LACTATED RINGERS AT 100 ML/HR. SAFETY MEASURES IN PLACE: BED IN LOWEST, LOCKED POSITION, BRAKES ON, SIDERAILS UP x2. WILL CONTINUE TO MONITOR.
[2021-05-14 08:00] VITALS: BP 137/79
[2021-05-14 08:26] LABS: BASOPHILS # (AUTO) 0.1 K/uL (0.0-0.2); BASOPHILS % (AUTO) 0.9 % (0.0-2.0); EOSINOPHILS % (AUTO) 0.8 % (0.0-6.0); HEMATOCRIT 34 % (39-51); HEMOGLOBIN 10.9 g/dL (13.5-17.5); LYMPHOCYTES # (AUTO) 2.1 K/uL (0.8-4.8); LYMPHOCYTES % (AUTO) 25.3 % (20.0-44.0); MEAN CORPUSCULAR HGB CONC 33 g/dl (31.0-36.0); MEAN CORPUSCULAR VOLUME 94 fL (80-96); MONOCYTES # (AUTO) 0.6 K/uL (0.1-1.30); MONOCYTES % (AUTO) 7.7 % (2.0-12.0); NEUTROPHILS # (AUTO) 5.5 K/uL (1.8-8.9); NEUTROPHILS % (AUTO) 65.3 % (43.0-81.0); PLATELET COUNT (AUTO) 161 K/uL (150-450); RED BLOOD CELL COUNT(AUTO) 3.58 MIL/uL (4.5-6.0); WHITE BLOOD COUNT (AUTO) 8.4 K/uL (4.3-11.0)
[2021-05-14] MEDS: CHOLECALCIFEROL 1,000 UNIT TABLET (VIT D3) PO SCH (08:35)
[2021-05-14] MEDS: ESCITALOPRAM OXALATE (10 MG) 10 MG TABLET PO SCH (08:35)
[2021-05-14] MEDS: ALPRAZOLAM 0.5 MG TABLET PO PRN (09:48)
--- NOTE | 2021-05-14 13:42 | NUR ---
RN NOTES JOSEFINA, DTR, CURRENTLY AT BEDSIDE. UPDATED DTR ABOUT PATIENT'S PROGRESS AND CONDITION; DTR INSISTED TO TALK TO DR. TSAI. DR. RIVERO, MADE AWARE HE IS THE PRIMARY HOSPITALIST.
--- NOTE | 2021-05-14 16:08 | NUR ---
PEDICURIST NOTES PATIENT SEEN BY DR. TSAI TODAY W/ ORDER FOR DISCHARGE TO HOME W/ HOME HEALTH F/U. DTR'S NUMBER PROVIDED TO BENI SALINAS, FOR HOME HEALTH SET-UP/ARRANGEMENT. DISCHARGE INSTRUCTION AND EDUCATION PROVIDED TO PATIENT AND DTR, VERBALIZED UNDERSTANDING. REFUSED FOR STAFF TO TAKE PHOTO OF SKIN ISSUES TOO MUCH TIME HAS ALREADY BEEN TAKEN AND IT WILL JUST MAKE THE DISCHARGE LONGER; RIGHT TO REFUSE RESPECTED. DISCHARGE FORM AND BELONGINGS LIST FORM UNABLE TO BE SIGNED BY PATIENT; FORM SIGNED AND WITNESSED BY ME AND ANOTHER RN MARY. ALL BELONGINGS ACCOUNTED FOR. NAME ARMBAND AND IV LINE REMOVED, NO BLEEDING NOTED. PATIENT WAS ACCOMPANIED TO THE LOBBY BY ME AND RASHID RODAS, VIA WHEELCHAIR AND PICKED UP BY KARIN ROCHA, VIA PRIVATE CAR. CHARGE NURSE AND MD AWARE OF DISCHARGE.
== END 2021-05-14 16:10 | disposition home health service (06) | DRG 640 ==
LOC: ER 18:47 → TELE 22:21 → EDBD 22:21 → MED 05-13 00:56
PROVIDERS: ADMIT Family Medicine; ATTEND Nurse Practitioner Acute Care
DX: E86.9 Volume depletion, unspecified (principal); N17.0 Acute kidney failure with tubular necrosis; G93.41 Metabolic encephalopathy; J98.11 Atelectasis; E86.0 Dehydration; F02.80 Dementia in other diseases classified elsewhere, unspecified severity, without behavioral disturbance, psychotic disturbance, mood disturbance, and anxiety; G20 Parkinson's disease; S00.03XA Contusion of scalp, initial encounter; W18.30XA Fall on same level, unspecified, initial encounter; Z20.822 Contact with and (suspected) exposure to COVID-19; E78.5 Hyperlipidemia, unspecified; Z85.46 Personal history of malignant neoplasm of prostate; Z90.79 Acquired absence of other genital organ(s); Z79.899 Other long term (current) drug therapy; Z91.81 History of falling; D63.8 Anemia in other chronic diseases classified elsewhere; I12.9 Hypertensive chronic kidney disease with stage 1 through stage 4 chronic kidney disease, or unspecified chronic kidney disease; N18.9 Chronic kidney disease, unspecified; I70.0 Atherosclerosis of aorta; B37.9 Candidiasis, unspecified
CPT/HCPCS: 36415; 70450-TC; 71045-TC; 72125-TC; 80048-TC; 80053-TC; 80061-TC; 80076-TC; 82550-TC; 83735-TC; 84100-TC; 84484-TC; 85025-TC; 87081-TC; 97116-TC; 97530-TC; C9803; G0378; J3490; J7030

== ENCOUNTER 2024-05-11 14:23 | Inpatient (IN) | payer MEDICARE, OTHER ==
[~2024-05-11] VITALS: Ht 177.8 cm; Wt 79.4 kg
[2024-05-11] MEDS: IV NS 0.9% 1,000 ML BAG IV ONE (14:45)
[2024-05-11 14:51] LABS: BASOPHILS % (AUTO) 0.4 % (0.0-2.0); EOSINOPHILS % (AUTO) 0.8 % (0.0-6.0); HEMATOCRIT 34 % (39-51); HEMOGLOBIN 10.8 g/dL (13.5-17.5); LYMPHOCYTES # (AUTO) 1.5 K/uL (0.8-4.8); LYMPHOCYTES % (AUTO) 33.6 % (20.0-44.0); MEAN CORPUSCULAR HEMOGLOBIN 29 PG (26.0-33.0); MEAN CORPUSCULAR HGB CONC 32 g/dl (31.0-36.0); MEAN CORPUSCULAR VOLUME 89 fL (80-96); MONOCYTES # (AUTO) 0.3 K/uL (0.1-1.30); MONOCYTES % (AUTO) 5.6 % (2.0-12.0); NEUTROPHILS # (AUTO) 2.7 K/uL (1.8-8.9); NEUTROPHILS % (AUTO) 59.6 % (43.0-81.0); PLATELET COUNT (AUTO) 122 K/uL (150-450); RED BLOOD CELL COUNT(AUTO) 3.76 MIL/uL (4.5-6.0); RED CELL DISTRIBUTION WIDTH 13.5 % (11.5-15.0); WHITE BLOOD COUNT (AUTO) 4.5 K/uL (4.3-11.0)
[2024-05-11 15:00] LABS: CALCIUM, SERUM 8.8 mg/dL (8.5-10.1); CARBON DIOXIDE 28 mmol/L (21-32); CHLORIDE 105 mmol/L (98-107); CREATININE 1.5 mg/dL (0.6-1.3); GLUCOSE 89 mg/dL (74-106); POTASSIUM 4.9 mmol/L (3.5-5.1); SODIUM SERUM 139 mmol/L (136-145); UREA NITROGEN, BLOOD 32 mg/dL (7-18)
[2024-05-11 15:14] LABS: ALANINE AMINOTRANSFERASE < 6 U/L (12-78); ALBUMIN 3.2 g/dL (3.4-5.0); ALKALINE PHOSPHATASE 88 U/L (46-116); ASPARTATE AMINOTRANSFERASE 9 U/L (15-37); BILIRUBIN,DIRECT 0.1 mg/dL (0.0-0.2); BILIRUBIN,TOTAL 0.7 mg/dL (0.2-1.0); TOTAL PROTEIN, SERUM 6.9 g/dL (6.4-8.2)
[2024-05-11] MEDS: CARBIDOPA/LEVODOPA 25/250 MG 1 UDTAB PO STA (15:50)
[2024-05-11] MEDS: CARBIDOPA/LEVODOPA 25/100 MG 1 UDTAB PO SCH (16:09)
[2024-05-11] MEDS: CARBIDOPA/LEVODOPA 25/100 MG 1 UDTAB PO STA (19:47)
[2024-05-11] MEDS: CARBIDOPA/LEVODOPA 25/100 MG 1 UDTAB ONE (19:48)
[2024-05-11 20:29] VITALS: BP 92/43; TEMP 97.5; O2SAT 98
[2024-05-11] MEDS ORDERED: QUET25TA PO (20:49)
[2024-05-11] MEDS ORDERED: MELA1TAB47 PO (20:50)
[2024-05-11 21:49] VITALS: BP 126/76; TEMP 97.7; O2SAT 98
[2024-05-11] MEDS ORDERED: ALPR-323 PO (23:52)
[2024-05-11] MEDS ORDERED: CARB1TAB60 PO (23:52)
[2024-05-11] MEDS ORDERED: ESCI5TAB PO (23:52)
[2024-05-12] MEDS ORDERED: ONDANSETRON HCL/PF 4 MG/2 ML VIAL IVP PRN
[2024-05-12] MEDS ORDERED: ZOLPIDEM TARTRATE 5 MG TABLET PO PRN
[2024-05-12] MEDS ORDERED: ACETAMINOPHEN 325 MG TABLET PO PRN
[2024-05-12] MEDS ORDERED: Z GUARD REMEDY 4 OZ OINT TP PRN
[2024-05-12] MEDS ORDERED: MAG HYDROX/AL HYDROX/SIMETH 30 ML UDC PO PRN
[2024-05-12] MEDS ORDERED: MAGNESIUM HYDROXIDE 30 ML UDC PO PRN
[2024-05-12 00:10] VITALS: BP 152/77; TEMP 98.6; O2SAT 98
[2024-05-12] MEDS ORDERED: CARBIDOPA/LEV CR 50/200 MG 1 UDTAB.SA PO SCH (00:30)
[2024-05-12] MEDS: ENOXAPARIN SODIUM 40 MG/0.4 ML DISP.SYRIN SQ SCH (00:42)
[2024-05-12] MEDS: IV NS 0.9% 1,000 ML IV PRN (00:55)
[2024-05-12 07:25] LABS: BASOPHILS % (AUTO) 0.5 % (0.0-2.0); EOSINOPHILS % (AUTO) 0.8 % (0.0-6.0); HEMATOCRIT 31 % (39-51); HEMOGLOBIN 9.9 g/dL (13.5-17.5); LYMPHOCYTES # (AUTO) 1.5 K/uL (0.8-4.8); LYMPHOCYTES % (AUTO) 24.4 % (20.0-44.0); MEAN CORPUSCULAR HEMOGLOBIN 29 PG (26.0-33.0); MEAN CORPUSCULAR HGB CONC 32 g/dl (31.0-36.0); MEAN CORPUSCULAR VOLUME 89 fL (80-96); MONOCYTES # (AUTO) 0.3 K/uL (0.1-1.30); MONOCYTES % (AUTO) 5.2 % (2.0-12.0); NEUTROPHILS # (AUTO) 4.3 K/uL (1.8-8.9); NEUTROPHILS % (AUTO) 69.1 % (43.0-81.0); PLATELET COUNT (AUTO) 121 K/uL (150-450); RED BLOOD CELL COUNT(AUTO) 3.48 MIL/uL (4.5-6.0); RED CELL DISTRIBUTION WIDTH 13.3 % (11.5-15.0); WHITE BLOOD COUNT (AUTO) 6.2 K/uL (4.3-11.0)
[2024-05-12 07:50] LABS: ALANINE AMINOTRANSFERASE < 6 U/L (12-78); ALBUMIN 2.7 g/dL (3.4-5.0); ALKALINE PHOSPHATASE 77 U/L (46-116); ASPARTATE AMINOTRANSFERASE 5 U/L (15-37); BILIRUBIN,DIRECT 0.1 mg/dL (0.0-0.2); BILIRUBIN,TOTAL 0.7 mg/dL (0.2-1.0); CALCIUM, SERUM 8.4 mg/dL (8.5-10.1); CARBON DIOXIDE 24 mmol/L (21-32); CHLORIDE 106 mmol/L (98-107); CREATININE 1.3 mg/dL (0.6-1.3); GLUCOSE 84 mg/dL (74-106); MAGNESIUM 1.9 mg/dL (1.8-2.4); PHOSPHORUS 2.8 mg/dL (2.5-4.9); POTASSIUM 4.8 mmol/L (3.5-5.1); SODIUM SERUM 138 mmol/L (136-145); TOTAL PROTEIN, SERUM 6.1 g/dL (6.4-8.2); UREA NITROGEN, BLOOD 28 mg/dL (7-18)
[2024-05-12] MEDS: PANTOPRAZOLE 40 MG TABLET.DR PO SCH (07:56)
[2024-05-12] MEDS: CARBIDOPA/LEV CR 50/200 MG 1 UDTAB.SA PO SCH (07:56)
[2024-05-12 08:00] VITALS: BP 163/82; TEMP 98.6; O2SAT 99
[2024-05-12 08:16] LABS: CHOLESTEROL 161 mg/dL (<200); HDL CHOLESTEROL 50 mg/dL (40-60); LDL 89 mg/dL (0-99); TRIGLYCERIDES 91 mg/dL (30-150)
[2024-05-12] MEDS ORDERED: MELA5TAB PO (11:06)
[2024-05-12] MEDS ORDERED: QUET100T PO (11:06)
[2024-05-12] MEDS ORDERED: ESCI20TA PO (11:06)
[2024-05-12] MEDS: ESCITALOPRAM OXALATE (10 MG) 10 MG TABLET PO SCH (11:13)
[2024-05-12] MEDS: ALPRAZOLAM 0.5 MG TABLET PO SCH (11:14)
[2024-05-12] MEDS ORDERED: CARB1TAB60 PO (11:44)
[2024-05-12] MEDS ORDERED: Medication Not On Formulary EA (Melatonin 1 TAB) PO SCH ×2 (18:00)
[2024-05-12] MEDS ORDERED: QUETIAPINE FUMARATE 25 MG TABLET PO SCH ×2 (18:00)
== END 2024-05-12 16:34 | DRG 682 ==
LOC: EDUNIT# 14:23 → ER 14:43 → TELE 18:20
PROVIDERS: ADMIT Nurse Practitioner Family; ATTEND Nurse Practitioner Acute Care
DX: N17.0 Acute kidney failure with tubular necrosis (principal); G93.41 Metabolic encephalopathy; E44.0 Moderate protein-calorie malnutrition; F02.83 Dementia in other diseases classified elsewhere, unspecified severity, with mood disturbance; F02.84 Dementia in other diseases classified elsewhere, unspecified severity, with anxiety; G20.A1 Parkinson's disease without dyskinesia, without mention of fluctuations; F32.A Depression, unspecified; Z79.899 Other long term (current) drug therapy; E88.09 Other disorders of plasma-protein metabolism, not elsewhere classified; F41.9 Anxiety disorder, unspecified; Z90.49 Acquired absence of other specified parts of digestive tract; Z85.46 Personal history of malignant neoplasm of prostate; I12.9 Hypertensive chronic kidney disease with stage 1 through stage 4 chronic kidney disease, or unspecified chronic kidney disease; N18.9 Chronic kidney disease, unspecified; D64.9 Anemia, unspecified; M89.8X9 Other specified disorders of bone, unspecified site; E78.5 Hyperlipidemia, unspecified
CPT/HCPCS: 36415; 70450-TC; 71045-TC; 80048-TC; 80061-TC; 80076-TC; 83605-TC; 83735-TC; 84100-TC; 84443-TC; 84484-TC; 85025-TC; 87040-TC; A4223; G0378; J1650; J7030